=== PATIENT | male | born 1940 | race Caucasian/White ===

== ENCOUNTER 2017-08-05 21:50 | Observation (INO) | payer OTHER ==
[2017-08-05 22:10] LABS: % IMMATURE GRANULYOCYTES 0.3 % (0.0-1.1); ABSOLUTE IMMATURE GRANULOCYTES 0.02 10^3/uL (0.00-0.10); ADD DIFF? NO; ADD MORPH? NO; ADD SCAN? NO; ATYPICAL LYMPHOCYTE FLAG 0 (0-99); FRAGMENT RBC FLAG 0 (0-99); HEMATOCRIT 42.1 % (40.0-51.0); LEFT SHIFT FLG 0 (0-99); LIPEMIA HEMOLYSIS FLAG 90 (0-99); MEAN CELL HEMOGLOBIN 32.8 pg (27.9-34.1); MEAN CELL HEMOGLOBIN CONCENTR. 35.6 g/dL (32.4-36.7); MEAN CELL VOLUME 91.9 fL (81.5-99.8); PLATELET CLUMPS FLAG 10 (0-99); PLATELET COUNT 179 10^3/uL (150-400); RED BLOOD CELL COUNT 4.58 10^6/uL (4.40-6.38); RED CELL DISTRIBUTION WIDTH 12.8 % (11.5-15.2)
--- NOTE | 2017-08-05 22:12 | EDPHY ---
H & P HPI/ROS: HPI CHIEF COMPLAINT: Delerium/AMS/Dementia HISTORY OF PRESENT ILLNESS: This patient very pleasant 77-year-old male, underlying Alzheimer's dementia, additionally history of prostate issues he presents to the emergency room by ambulance with police as well as his who arrive separately in private vehicle. 9 was was called this evening due to the patient becoming more paranoid and hallucinating and stating that he sees people outside her trying to harm him and his in her house. He states that been shooting at him. This has been going on intermittently for the past week. He did see his primary care doctor today. His is not been giving him his Zoloft. She started back on it today at the advice of the primary care doctor. He is followed by Andrea. His reports that he was somewhat agitated today. She believes that he is either sundowning or having a delirium. Past Medical History: Alzheimer's dementia, BPH Past Surgical History: No recent surgery. Social History: Denies daily use of drugs alcohol tobacco. Lives in a private residence with his . Family History: Noncontributory ROS REVIEW OF SYSTEMS: A comprehensive 10 point review of systems is otherwise negative aside from elements mentioned in the history of present illness. Exam Constitutional appears well nontoxic, triage nursing summary reviewed, vital signs reviewed, awake/alert. Eyes normal conjunctivae and sclera, EOMI, PERRLA. HENT normal inspection, atraumatic, moist mucus membranes, no epistaxis, neck supple/ no meningismus, no raccoon eyes. Respiratory clear to auscultation bilaterally, normal breath sounds, no respiratory distress, no wheezing. Cardiovascular rate normal, regular rhythm, no murmur, no edema, distal pulses normal. Gastrointestinal soft, non-tender, no rebound, no guarding, normal bowel sounds, no distension, no pulsatile mass. Genitourinary no CVA tenderness. Musculoskeletal no midline vertebral tenderness, full range of motion, no calf swelling, no tenderness of extremities, no meningismus, good pulses, neurovascularly intact. Skin pink, warm, & dry, no rash, skin atraumatic. Neurologic alert and orient x1, at neurological baseline according to his , moves all 4 extremities equally, motor intact, sensory intact, CN II-XII intact, normal cerebellar, normal vision, normal speech. Psychiatric normal mood/affect. Heme/Lymph/Immune no lymphadenopathy. Differential Diagnosis: Includes but is not limited to in a particular order dementia, delirium, sundowning, altered mental status, electrolyte disturbance, dehydration, intracranial bleed Medical Decision Making: Plan for this patient IV establishment with blood draw , check basic electrolytes, CT head without contrast for increasing confusion in the setting of underlying dementia. Re-evaluate. Re-evaluation: ED CT scan head without contrast: Negative for acute bleed. Atrophy present. Called to me by Dr. Lex Waddell [id number]: I have not found anything acute explain delirium. However he is not safe to go home and his who is also elderly does not feel comfortable taking him home. Will admit to the hospital for observation and for case management to work with him. I did touch base with [facility] they are fine with us keeping him here. I spoke with the hospitalist service: They will plan on observing him overnight. Reason for admission delirium in the setting of underlying dementia. Source: Patient, Police, EMS - Personal History Tetanus Vaccine Date: < 10 PER FAMILY - Medical/Surgical History Hx Asthma: No Hx Chronic Respiratory Disease: No Hx Diabetes: No Hx Cardiac Disease: No Hx Renal Disease: No Hx Cirrhosis: No Hx Alcoholism: No Hx HIV/AIDS: No Hx Splenectomy or Spleen Trauma: No Other PMH: TBI, kidney stones, pneumonia, dementia, back surgery, appendectomy Constitutional: Initial Vital Signs Temperature (C) 36.7 C 08/05/17 21:47 Heart Rate 72 08/05/17 21:47 Respiratory Rate 18 08/05/17 21:47 Blood Pressure 183/107 H 08/05/17 21:47 O2 Sat (%) 96 08/05/17 21:47 O2 Delivery Mode Room Air Allergies/Adverse Reactions: No Known Allergies Allergy (Verified 08/05/17 22:38) Home Medications: Medication Instructions Recorded Sertraline HCl [Zoloft 100mg (*)] 100 mg PO DAILY 08/05/17 Tamsulosin HCl [Flomax 0.4 MG (*)] 0.4 mg PO HS 08/05/17 Donepezil HCl [Aricept 5 MG (*)] 10 mg PO HS tab 08/06/17 Herbals/Supplements -Info Only 1 ea PO DAILY 08/06/17 Melatonin [Melatonin 3 MG (*)] 3 mg PO HS tab 08/06/17 Multivitamins [Multivitamin (*)] 1 tab PO DAILY 08/06/17 QUEtiapine FUMARATE [Seroquel 25 25 mg PO DAILY PRN tab 08/06/17 mg (*)] Medical Decision Making - Data Points Laboratory Results: Laboratory Results 08/05/17 22:07 08/05/17 22:07 Medications Given: Discontinued Medications Acetaminophen (Tylenol) 650 mg PO Q4HRS PRN PRN Reason: Pain, Mild/Fever, Can Take PO Stop: 02/01/18 22:54 Last Admin: 08/06/17 11:43 Dose: 650 mg Haloperidol Lactate (Haldol Injection) 1 mg IVP ONCE ONE Stop: 08/06/17 04:42 Last Admin: 08/06/17 04:48 Dose: 1 mg Haloperidol Lactate (Haldol Injection) 1 mg IVP ONCE ONE Stop: 08/06/17 04:54 Last Admin: 08/06/17 05:02 Dose: 1 mg Departure - Departure Disposition: [facility] Acute Clinical Impression: Delirium Condition: Fair
[2017-08-05 22:19] LABS: INR 0.97 (0.83-1.16); PROTIME(PATIENT) 13.1 SEC (12.0-15.0)
[2017-08-05 22:20] LABS: APTT 25.2 SEC (23.0-38.0)
[2017-08-05 22:22] LABS: ANION GAP 9 mEq/L (8-16); CALCIUM 9.7 mg/dL (8.5-10.4); CARBON DIOXIDE 29 mEq/l (22-31); CHLORIDE 103 mEq/L (97-110); GLOMERULAR FILTRATION RATE > 60; GLUCOSE 134 mg/dL (70-100); POTASSIUM 3.8 mEq/L (3.5-5.2); SODIUM 141 mEq/L (134-144)
[2017-08-05 22:52] LABS: COLOR AMBER; LEUKOCYTE ESTERASE,URINE NEGATIVE (NEGATIVE); NITRITE,URINE NEGATIVE (NEGATIVE)
[2017-08-05] MEDS ORDERED: ONDANSETRON DISINTEGRATING 4 MG TAB PO PRN (22:55)
[2017-08-05] MEDS ORDERED: ACETAMINOPHEN 325 MG TAB PO PRN (22:55)
[2017-08-05] MEDS ORDERED: ONDANSETRON 4 MG/2 ML VIAL IVP PRN (22:55)
[2017-08-05 22:57] LABS: MUCUS TRACE /lpf (NONE-1+); RBC,URINE 50-182 /hpf (0-3)
--- NOTE | 2017-08-05 23:24 | PDGENHP ---
History and Physical - Chief Complaint Agitation - History of Present Illness 77 yo M with dementia and HTN presents to ED with agitation. Patient's brought in patient after he was difficult to redirect for most of the afternoon. reports that he has had progressive dementia for several years now. His behavior at night has deteriorated since the days have become shorter and night falls earlier. Over the last week or so he has been having paranoid delusions about strangers outside the house. These worsened today and patient was difficult to redirect so he was brought to the ED. Of note, patient and saw [facility] PCP today who reassured them and found nothing amiss physically. is motivated to keep patient at home with her. She has been in conversation with "Safe At Home" program to investigate options to keep Didier at home in a safe manner. History Information - Allergies/Home Medication List Allergies/Adverse Reactions: No Known Allergies Allergy (Verified 08/05/17 22:38) Home Medications: Tamsulosin HCl 08/05/17 [Last Taken Unknown] Zoloft 50mg (*) 08/05/17 [Last Taken Unknown] I have personally reviewed and updated: family history, medical history - Past Medical History dementia, hypertension - Family History Positive for: cancer - Social History Smoking Status: Former smoker Review of Systems Review of Systems: ROS: 10pt was reviewed & negative except for what was stated in HPI & below Physical Exam Physical Exam: Temp Pulse Resp BP Pulse Ox 36.7 C 72 18 183/107 H 96 08/05/17 21:47 08/05/17 21:47 08/05/17 21:47 08/05/17 21:47 08/05/17 21:47 Constitutional: no apparent distress, not in pain Eyes: PERRL, EOMI Ears, Nose, Mouth, Throat: moist mucous membranes, no oral mucosal ulcers Cardiovascular: regular rate and rhythym, systolic murmur Respiratory: no respiratory distress, clear to auscultation Gastrointestinal: normoactive bowel sounds, soft, non-tender abdomen Skin: warm, normal color Neurologic: other (A&Ox1, person only) Psychiatric: interacting appropriately, not anxious Lab Data & Imaging Review 08/05/17 22:07 08/05/17 22:07 WBC 7.55 10^3/uL (3.80-9.50) 08/05/17 22:07 RBC 4.58 10^6/uL (4.40-6.38) 08/05/17 22:07 Hgb 15.0 g/dL (13.7-17.5) 08/05/17 22:07 Hct 42.1 % (40.0-51.0) 08/05/17 22:07 MCV 91.9 fL (81.5-99.8) 08/05/17 22:07 MCH 32.8 pg (27.9-34.1) 08/05/17 22:07 MCHC 35.6 g/dL (32.4-36.7) 08/05/17 22:07 RDW 12.8 % (11.5-15.2) 08/05/17 22:07 Plt Count 179 10^3/uL (150-400) 08/05/17 22:07 MPV 10.0 fL (8.7-11.7) 08/05/17 22:07 Neut % (Auto) 59.8 % (39.3-74.2) 08/05/17 22:07 Lymph % (Auto) 28.2 % (15.0-45.0) 08/05/17 22:07 [place] % (Auto) 9.7 % (4.5-13.0) 08/05/17 22:07 Eos % (Auto) 1.3 % (0.6-7.6) 08/05/17 22:07 Baso % (Auto) 0.7 % (0.3-1.7) 08/05/17 22:07 Nucleat RBC Rel Count 0.0 % (0.0-0.2) 08/05/17 22:07 Absolute Neuts (auto) 4.52 10^3/uL (1.70-6.50) 08/05/17 22:07 Absolute Lymphs (auto) 2.13 10^3/uL (1.00-3.00) 08/05/17 22:07 Absolute Monos (auto) 0.73 10^3/uL (0.30-0.80) 08/05/17 22:07 Absolute Eos (auto) 0.10 10^3/uL (0.03-0.40) 08/05/17 22:07 Absolute Basos (auto) 0.05 10^3/uL (0.02-0.10) 08/05/17 22:07 Absolute Nucleated RBC 0.00 10^3/uL (0-0.01) 08/05/17 22:07 Immature Gran % 0.3 % (0.0-1.1) 08/05/17 22:07 Immature Gran # 0.02 10^3/uL (0.00-0.10) 08/05/17 22:07 PT 13.1 SEC (12.0-15.0) 08/05/17 22:07 INR 0.97 (0.83-1.16) 08/05/17 22:07 APTT 25.2 SEC (23.0-38.0) 08/05/17 22:07 Sodium 141 mEq/L (134-144) 08/05/17 22:07 Potassium 3.8 mEq/L (3.5-5.2) 08/05/17 22:07 Chloride 103 mEq/L (97-110) 08/05/17 22:07 Carbon Dioxide 29 mEq/l (22-31) 08/05/17 22:07 Anion Gap 9 mEq/L (8-16) 08/05/17 22:07 BUN 23 mg/dL (7-23) 08/05/17 22:07 Creatinine 1.0 mg/dL (0.7-1.3) 08/05/17 22:07 Estimated GFR > 60 08/05/17 22:07 Glucose 134 mg/dL (70-100) H 08/05/17 22:07 Calcium 9.7 mg/dL (8.5-10.4) 08/05/17 22:07 Urine Color AWA 08/05/17 22:30 Urine Appearance HAZY 08/05/17 22:30 Urine pH 5.0 (5.0-7.5) 08/05/17 22:30 Ur Specific Red [place] 1.023 (1.002-1.030) 08/05/17 22:30 Urine Protein NEGATIVE (NEGATIVE) 08/05/17 22:30 Urine Ketones NEGATIVE (NEGATIVE) 08/05/17 22:30 Urine Blood 1+ (NEGATIVE) H 08/05/17 22:30 Urine Nitrate NEGATIVE (NEGATIVE) 08/05/17 22:30 Urine Bilirubin NEGATIVE (NEGATIVE) 08/05/17 22:30 Urine Urobilinogen NEGATIVE EU (0.2-1.0) 08/05/17 22:30 Ur Leukocyte Esterase NEGATIVE (NEGATIVE) 08/05/17 22:30 Urine RBC 50-182 /hpf (0-3) H 08/05/17 22:30 Urine WBC 1-3 /hpf (0-3) 08/05/17 22:30 Ur Epithelial Cells TRACE /lpf (NONE-1+) 08/05/17 22:30 Urine Mucus TRACE /lpf (NONE-1+) 08/05/17 22:30 Urine Glucose NEGATIVE (NEGATIVE) 08/05/17 22:30 Imaging Review: CTH with no acute changes. Assessment & Plan Assessment: 77 yo M w/ dementia presents with intermittent agitation. Plan: 1. Dementia c/b intermittent agitation - No clear evidence of delirium on my examination; patient calm and cooperative at this time. He is at his A&Ox1 baseline per his . The issue seems to be intermittent agitation and paranoid delusions consistent with sundowning in the setting of advancing dementia. Patient was brought in today because had a difficult time redirecting the patient. is motivated to keep patient at home and would like to explore options to do so safely. BMP, UA, and CTH without evidence of organic trigger for delirium. - Admit for observation - PT/OT/CM evaluations 2. HTN - Not on meds, this seems reasonable. 3. BPH - On tamsulosin as an outpatient Diet - Regular Code - DNR Ppx - SCDs Dispo - Admit to observation status
[2017-08-06] MEDS ORDERED: HALOPERIDOL LACT 5 MG/ML INJ IVP ONE ×2 (04:41→04:53)
[2017-08-06] MEDS ORDERED: HALOPERIDOL LACT 5 MG/ML INJ ONE (04:44)
[2017-08-06 07:35] VITALS: TEMP 98.2
[2017-08-06 08:40] LABS: ANION GAP 11 mEq/L (8-16); CALCIUM 9.4 mg/dL (8.5-10.4); CARBON DIOXIDE 25 mEq/l (22-31); CHLORIDE 107 mEq/L (97-110); CREATININE 0.9 mg/dL (0.7-1.3); GLOMERULAR FILTRATION RATE > 60; GLUCOSE 128 mg/dL (70-100); SODIUM 143 mEq/L (134-144)
[2017-08-06 16:05] VITALS: BP 148/95; PULSE 72; RESP 16; O2SAT 94
[2017-08-06] MEDS ORDERED: DONEPEZIL HCL 5 MG TAB PO SCH (17:00)
[2017-08-06] MEDS ORDERED: QUEtiapine FUMARATE 25 MG TAB PO PRN (17:01)
--- NOTE | 2017-08-06 17:19 | PDDCSUM ---
Discharge Summary Discharge Summary: DISCHARGE DIAGNOSES: -acute and subacute psychotic symptoms with hallucinations delusions and agitated behavior, as a manifestation of advancing dementia -chronic progressive dementia -absence of any identified medications, infections, acute medical illnesses or metabolic issues contributing to his current symptoms PROCEDURES: Noncontrast CT of the head with no acute abnormalities and nothing to suggest a cause of his acute presenting symptoms HOSPITAL COURSE SUMMARY: This patient has a long history of dementia that is progressive. He lives at home with his who is his film flat inspector and it requires generally hit her or someone else's constant presennce for him to be safe. The brought him to the hospital yesterday after of approximately 2 weeks of increasing agitation with delusional thoughts and hallucinations, paranoia, with significant component overnight. In terms of causative factors it is noted that the daughter who lives next door went to [place] for the winter approximately 4 weeks ago, and there have been a couple of caregivers brought in to try and help out around home in the meantime at least 1 of whom did not mix well with the patient. Also yesterday there was a large scale a plumbing project at their home with machinery to clean out a clog sewage pipe. This apparently was fairly upsetting to the patient. Here in the hospital we have seen no signs of acute illness, no intoxicating drugs chemicals or alcohol, no concerning medications on his list and no recent changes in his medicines, and nothing else that we can identify as a fixable or treatable cause of his trouble. Overnight last night he did have severe agitation with delusional thoughts, worried that someone was trying to kill him , and somewhat threatening to staff. Security had to be called to help control him and he was given some Haldol which according to nursing staff did seem to help. I reviewed the details of the situation with his to make sure we have the history very clear. At this time I think it would be very helpful to institute some changes at home or we try make things as constant as possible with routines and schedules and minimizing personnel changes. Also she has some places where she can take the during the day if there people coming to work on [employer], electrical appliances or anything else that is going to be different around the home. In addition we talked about avoiding things that may disrupt sleeping at night. We talked about eating well and getting some exercise. I also strongly advised her to engage in some caregiver education and possibly caregiver support groups and are comp field case manager, trying give her some reference material for resources available though as there with [place] it may be helpful for her to go through [facility] to get such help. A lot of this though is in the community and available to anyone. Is also the Internet with there is good information in reliable resources. We also discussed the possibility of using medications to treat this and we discussed the advantages and disadvantages and potential side effects and the potential for actually benefitting his symptoms by using medicines. I did recommend using some melatonin to help with sleep at night as this will surely be bothering his sleep with his . Minimal side effects. I did recommend the use of Aricept which can in some patients with dementia have significant improvements in behavioral issues. She is in agreement with this. I discussed other medications none of which I am favoring at this time. My least favorite medicines to use would be a benzodiazepine although there are a percentage of folks in his situation who may tolerate these medicines well and may benefit from them. He seems physically fairly sturdy and not much fall risk right now but that will interchange agent time. Neural epic medications of the newer generation can sometimes be very effective for managing his symptoms and in fact he did seem to benefit from some Haldol here last night. I did review with her that these medicines can have risk of dangerous arrhythmia is and other danger side effects. However I also reviewed that these medicines in some people are the most effective medication management for these symptoms and given the safety risk of uncontrolled agitation and delusions and hallucinations there are times when these medicines are safer to take than to avoid. After all of our discussion we agreed that starting melatonin in the Aricept now is a good idea and I have given her a prescription for the Aricept and she can buy melatonin over the counter. I have also given her a prescription for some Seroquel 25 mg tablets that she could give on an as needed basis once a day to control severe agitation if there is risk of danger to him or her or otherwise it becomes truly necessary. She does understand the risks and agrees that this is a medicine to avoid when possible I did discuss further hospitalization to try and titrate medication effects here in the hospital. However she is very concerned about the aggravating effect being in the hospital have on his delusions and behaviors and I agree that this is a serious risk. She would like to take him home and as there is no serious acute medical illness other than his mental health issues I agree that this is very reasonable for her. She can always come back here with him if necessary, and she has other family around that can help her. PENDING TEST RESULTS: None MEDICATION CHANGES: Addition of Aricept 10 mg at nighttime Addition of melatonin at nighttime A prescription for 10 tablets of Seroquel 25 mg is given to be used only as needed for severe agitation with risk of injury or other serious risk to the patient or others FOLLOW-UP PLAN: There to see their primary care physician this week in clinic Greater than 35 minutes bedside and care coordination time today
--- NOTE | 2017-08-06 17:30 | ASMTCMCOM ---
CM Note CM Note Notes: Pt has dementia and lives at home with who is his caregiver. Per PT is capable of taking care of pt and that he is not a fall risk. MD discharging pt tonight, no homecare needs, gave numbers and resources for support groups and information on caring for loved ones with dementia. DC Plan: Home with Date Signed: 08/06/2017 05:29 PM Electronically Signed By:Yumiko Montague RN
--- NOTE | 2017-08-06 18:02 | ASDISCHSUM ---
Discharge Information Plan Status:Home with No Needs Medically Cleared to Leave: Discharge Date:08/06/2017 05:48 PM CM D/C Disposition:Home, Routine, Self-Care ADT D/C Disposition:Home, Routine, Self-Care Projected Discharge Date:08/06/2017 05:48 PM Transportation at D/C:Family Discharge Delay Reason: Follow-Up Date:08/06/2017 05:48 PM Discharge Slot: Final Diagnosis: Placement Information Patient Contact Information Contact Name:CYNTHIA Relationship: [address] Work Phone: City:[facility] Phone: [facility]/Zip Code:[place] [address] Email: Financial Information Financial Class:Medicare Advantage Plans Primary Plan Desc:[employer] ADVANTAGE OUTPAT Primary Plan Number:[id number] Secondary Plan Desc: Secondary Plan Number: Assessment Information [facility] CM Progress Note CM Note CM Note Notes: Pt has dementia and lives at home with who is his caregiver. Per PT is capable of taking care of pt and that he is not a fall risk. MD discharging pt luizaight, no homecare needs, gave numbers and resources for support groups and information on caring for loved ones with dementia. DC Plan: Home with Date Signed: 08/06/2017 05:29 PM Electronically Signed By:Yumiko Mnotague RN Intervention Information
[2017-08-06] MEDS ORDERED: MELATONIN 3 MG TAB PO SCH (21:00)
[2017-08-06] MEDS ORDERED: TAMSULOSIN HCL 0.4 MG CAP PO SCH (21:00)
[2017-08-07] MEDS ORDERED: SERTRALINE HCL 100 MG TAB PO SCH (09:00)
[2017-08-07] MEDS ORDERED: MULTIVITAMINS 1 EACH TAB PO SCH (09:00)
== END 2017-08-06 17:48 | disposition home or self-care (01) ==
LOC: EDUNIT# → F3E 23:55
PROVIDERS: ADMIT Student in an Organized Health Care Education/Training Program; ATTEND Student in an Organized Health Care Education/Training Program
DX: F03.91 Unspecified dementia, unspecified severity, with behavioral disturbance (principal); R44.3 Hallucinations, unspecified; R45.1 Restlessness and agitation
CPT/HCPCS: 70450; 97161; 97166; 99285; G0378; G8978; G8979; G8980

== ENCOUNTER 2018-11-14 02:29 | Emergency (ER) | payer OTHER ==
--- NOTE | 2018-11-14 02:52 | EDPHY ---
H & P Stated Complaint: agitation/aggression alzheimers/dementia Time Seen by Provider: 11/14/18 02:34 HPI/ROS: HPI The patient presents with altered mental status with increased agitation and aggression towards his . He is brought in by ambulance from home where he lives with his . She told the paramedics that he was aggressive toward her and she was worried about her safety. He was agitated when EMS arrived and required Versed 5 mg IM for sedation. Of note on November 13, yesterday, he was at [facility] for urologic procedure. He has known left-sided nephrolithiasis and had ureteral stent placed.. REVIEW OF SYSTEMS 10 systems were reviewed and negative with the exception of the elements mentioned in the history of present illness. PMHx: Alzheimer's dementia Soc Hx: Resides at home with his PHYSICAL General Appearance: Alert, no distress Eyes: Pupils equal and round no pallor or injection ENT, Mouth: Mucous membranes moist Respiratory: There are no retractions, lungs are clear to auscultation Cardiovascular: Regular rate and rhythm Gastrointestinal: Abdomen is soft and non-tender, no masses, bowel sounds normal Neurological: Alert, moves all extremities Skin: Warm and dry, no rashes Musculoskeletal: Neck is supple non tender Extremities: symmetrical, full range of motion Psychiatric: there is no agitation currently Source: Patient, Family, EMS Exam Limitations: Clinical condition - Personal History Current Tetanus Diphtheria and Acellular Pertussis (TDAP): Yes Tetanus Vaccine Date: < 10 PER FAMILY - Medical/Surgical History Hx Asthma: No Hx Chronic Respiratory Disease: No Hx Diabetes: No Hx Cardiac Disease: No Hx Renal Disease: No Hx Cirrhosis: No Hx Alcoholism: No Hx HIV/AIDS: No Hx Splenectomy or Spleen Trauma: No Other PMH: TBI, kidney stones, pneumonia, back surgery, appendectomy, alzheimers , dementia - Social History Smoking Status: Former smoker Constitutional: Initial Vital Signs Temperature (C) 36.4 C 11/14/18 02:33 Heart Rate 81 11/14/18 02:33 Respiratory Rate 16 11/14/18 02:33 Blood Pressure 129/69 H 11/14/18 02:33 O2 Sat (%) 89 L 11/14/18 02:33 O2 Delivery Mode Room Air Allergies/Adverse Reactions: No Known Allergies Allergy (Verified 11/14/18 02:32) Home Medications: Medication Instructions Recorded Cbd Oil 11/14/18 Flomax 11/14/18 Medical Decision Making Differential Diagnosis: 78-year-old male with known Alzheimer's dementia with history of agitation and aggression previously now presents with worsening aggression at home towards . He was at [facility] earlier today having a urologic procedure, stent replacement. Otherwise there have been no changes to his environment or medical history. He was observed for several hours in the emergency department. Basic labs were checked and demonstrated hematuria which I suspect is related to his recent urologic procedure. There were not signs of overt infection, however I did send his urine for culture testing. I discussed his presentation with his at the bedside. She says that often when there are environmental changes this causes worsening of his dementia with some sundowning and occasional agitation. He had a similar episode in June of 2017 in which he was admitted to this hospital. He was given Seroquel to use p.r.n. As an outpatient, however he did not tolerate this well. Currently, he is not on any medication except for medical marijuana which his reports helps him significantly. She suspects that because of his urologic procedure his dementia has become worse. I have offered admission to the hospital, however she would like to take him home as she believes he will do best in his usual environment. I feel this is reasonable. He has done well throughout his time in the emergency department and has been calm. She says that she does feel safe at home and she is not worried that he will injure her. He has not hurt her today though threatened to do so. She has 2 sons that can help somewhat at home. She also has a caregiver that comes to the house and a day program that she can send him to. However, these are quite costly but she thinks in the short term she can afford them. I have encouraged her to follow up with the patient's outpatient primary care doctor at [place] to discuss if any other resources are available to them. - Data Points Laboratory Results: Laboratory Results 11/14/18 03:25 11/14/18 03:25 11/14/18 11/14/18 11/14/18 05:10 03:25 03:25 WBC 5.96 10^3/uL 10^3/uL (3.80-9.50) RBC 4.37 10^6/uL L 10^6/uL (4.40-6.38) Hgb 14.1 g/dL g/dL (13.7-17.5) Hct 40.4 % % (40.0-51.0) MCV 92.4 fL fL (81.5-99.8) MCH 32.3 pg pg (27.9-34.1) MCHC 34.9 g/dL g/dL (32.4-36.7) RDW 11.9 % % (11.5-15.2) Plt Count 227 10^3/uL 10^3/uL (150-400) MPV 10.0 fL fL (8.7-11.7) Neut % (Auto) 83.4 % H % (39.3-74.2) Lymph % (Auto) 11.9 % L % (15.0-45.0) Mccone % (Auto) 4.4 % L % (4.5-13.0) Eos % (Auto) 0.0 % L % (0.6-7.6) Baso % (Auto) 0.0 % L % (0.3-1.7) Nucleat RBC Rel Count 0.0 % % (0.0-0.2) Absolute Neuts (auto) 4.97 10^3/uL 10^3/uL (1.70-6.50) Absolute Lymphs (auto) 0.71 10^3/uL L 10^3/uL (1.00-3.00) Absolute Monos (auto) 0.26 10^3/uL L 10^3/uL (0.30-0.80) Absolute Eos (auto) 0.00 10^3/uL L 10^3/uL (0.03-0.40) Absolute Basos (auto) 0.00 10^3/uL L 10^3/uL (0.02-0.10) Absolute Nucleated RBC 0.00 10^3/uL 10^3/uL (0-0.01) Immature Gran % 0.3 % % (0.0-1.1) Immature Gran # 0.02 10^3/uL 10^3/uL (0.00-0.10) Sodium 138 mEq/L mEq/L (135-145) Potassium 4.5 mEq/L mEq/L (3.5-5.2) Chloride 106 mEq/L mEq/L (97-110) Carbon Dioxide 24 mEq/l mEq/l (22-31) Anion Gap 8 mEq/L mEq/L (6-14) BUN 21 mg/dL mg/dL (7-23) Creatinine 1.0 mg/dL mg/dL (0.7-1.3) Estimated GFR > 60 Glucose 149 mg/dL H mg/dL (70-100) Calcium 9.0 mg/dL mg/dL (8.5-10.4) Total Bilirubin 0.7 mg/dL mg/dL (0.1-1.4) AST 20 IU/L IU/L (17-59) ALT 19 IU/L L IU/L (21-72) Alkaline Phosphatase 58 IU/L IU/L (38-126) Total Protein 6.5 g/dL g/dL (6.3-8.2) Albumin 3.7 g/dL g/dL (3.5-5.0) Urine Color YELLOW Urine Appearance MODERATELY TURBID Urine pH 6.0 (5.0-7.5) Ur Specific [place] 1.020 (1.002-1.030) Urine Protein 2+ H (NEGATIVE) Urine Ketones NEGATIVE (NEGATIVE) Urine Blood 3+ H (NEGATIVE) Urine Nitrate NEGATIVE (NEGATIVE) Urine Bilirubin NEGATIVE (NEGATIVE) Urine Urobilinogen NEGATIVE EU EU (0.2-1.0) Ur Leukocyte Esterase 1+ H (NEGATIVE) Urine RBC 50-182 /hpf H /hpf (0-3) Urine WBC 15-25 /hpf H /hpf (0-3) Ur Epithelial Cells NONE SEEN /lpf /lpf (NONE-1+) Urine Mucus TRACE /lpf /lpf (NONE-1+) Urine Glucose NEGATIVE (NEGATIVE) Medications Given: Discontinued Medications Sodium Chloride (Ns) 1,000 mls @ 0 mls/hr IV EDNOW ONE; Wide Open PRN Reason: Protocol Stop: 11/14/18 04:17 Last Admin: 11/14/18 04:21 Dose: 1,000 mls Departure - Departure Disposition: Home, Routine, Self-Care Clinical Impression: Delirium Alzheimer's dementia Qualifiers: Alzheimer's disease onset: unspecified onset Dementia behavioral disturbance: with behavioral disturbance Qualified Code(s): G30.9 - Alzheimer's disease, unspecified; F02.81 - Dementia in other diseases classified elsewhere with behavioral disturbance; F02.81 - Dementia in other diseases classified elsewhere with behavioral disturbance; F02.81 - Dementia in other diseases classified elsewhere with behavioral disturbance Condition: Good Instructions: Alzheimer Disease (DC) Additional Instructions: Please return to the emergency department if he is worse in any way. Referrals: [facility] ,. [Edm Groups for Call Sched] - As per Instructions
[2018-11-14 03:36] LABS: PLATELET COUNT 227 10^3/uL (150-400)
[2018-11-14] MEDS ORDERED: NS 1,000 ML IV ONE (04:16)
[2018-11-14] MEDS ORDERED: OLANZapine DISINTEGR 10 MG TAB PO ONE (07:41)
[2018-11-14] MEDS ORDERED: MIDAZOLAM 10 MG/2 ML VIAL ONE (08:13)
[2018-11-14] MEDS ORDERED: MIDAZOLAM 10 MG/2 ML VIAL IM ONE (08:19)
[2018-11-14 09:20] VITALS: BP 125/48
== END 2018-11-14 09:20 | disposition home or self-care (01) ==
LOC: EDUNIT#
DX: R41.0 Disorientation, unspecified (principal); F02.81 Dementia in other diseases classified elsewhere, unspecified severity, with behavioral disturbance; G30.9 Alzheimer's disease, unspecified; E86.9 Volume depletion, unspecified
CPT/HCPCS: 96360; 96372; 99285; J2250